=== PATIENT | male | born 1990 | race Caucasian/White ===

== ENCOUNTER 2017-02-28 02:51 | Emergency (ER) | payer BC ==
[2017-02-28 03:01] VITALS: BP 138/87; PULSE 84; TEMP 97; BMI 22.3
[2017-02-28] MEDS ORDERED: ACETAMINOPHEN 325 MG TABLET (FP) PO ONE (03:33)
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
[2017-02-28] MEDS ORDERED: ACETAMINOPHEN 325 MG TABLET (FP) ONE (04:07)
== END 2017-02-28 05:30 | disposition home or self-care (01) ==
LOC: JER 02:51
PROC: 2W3CX1Z Immobilization of Right Lower Arm using Splint (ICD-10-PCS; principal; 2017-02-28)
DX: S62.336A Displaced fracture of neck of fifth metacarpal bone, right hand, initial encounter for closed fracture (principal); W22.8XXA Striking against or struck by other objects, initial encounter; Y93.89 Activity, other specified; Y92.038 Other place in apartment as the place of occurrence of the external cause
CPT/HCPCS: 73130-TC-RT; 99281-25